=== PATIENT | male | born 1990 | race African-American/Black ===

== ENCOUNTER 2018-04-26 13:04 | Emergency (ER) | payer MEDICAID ==
[~2018-04-26] VITALS: Ht 182.9 cm; Wt 74.8 kg
[2018-04-26 13:58] VITALS: BP 152/98
--- NOTE | 2018-04-26 14:50 | NUR ---
PT AMBULATES TO ER BED 11
--- NOTE | 2018-04-26 15:20 | NUR ---
PATIENT PRESENTS TO ED WITH right facial swelling. Induration and tender to touch times 6 days. DENIES N/V/D; SKIN IS PINK/WARM/DRY; AAOX4 WITH EVEN AND STEADY GAIT; LUNGS CLEAR BL; HR EVEN AND REGULAR; PT DENIES ANY FEVER, CP, SOB, OR COUGH AT THIS TIME; PATIENT STATES PAIN OF 8/10 AT THIS TIME; VSS; PATIENT POSITIONED FOR COMFORT; HOB ELEVATED; BEDRAILS UP X2; BED DOWN. ER MD MADE AWARE OF PT STATUS.
[2018-04-26] MEDS ORDERED: LIDOCAINE 1% ***ER ONLY *** 50 ML ONE (16:10)
[2018-04-26] MEDS ORDERED: BACITRACIN OINT 500 UNITS/GM PKT TP ONE (16:39)
[2018-04-26] MEDS: CEPHALEXIN 500 MG CAP PO ONE (16:51)
[2018-04-26] MEDS: SULFAMETH/TRIMETH DS 800/160MG 1 TAB PO ONE (16:52)
[2018-04-26] MEDS: BACITRACIN OINT 500 UNITS/GM PKT TP ONE (16:53)
[2018-04-26 17:25] VITALS: BP 135/88
--- NOTE | 2018-04-26 17:25 | NUR ---
Patient discharged with v/s stable. Written and verbal after care instructions given and explained. Patient alert, oriented and verbalized understanding of instructions. Ambulatory with steady gait. All questions addressed prior to discharge. ID band removed. Patient advised to follow up with PMD. Rx of KELFEX/BACTRIM/ given. Patient educated on indication of medication including possible reaction and side effects. Opportunity to ask questions provided and answered.
[2018-04-26] MEDS: LIDOCAINE 1% 500 MG/50 ML VIAL INJ SCH (18:07)
== END 2018-04-26 17:25 | disposition home or self-care (01) ==
LOC: MED 13:04
DX: L02.01 Cutaneous abscess of face (principal); J45.909 Unspecified asthma, uncomplicated; F17.210 Nicotine dependence, cigarettes, uncomplicated
CPT/HCPCS: 10060; 99284; J2001

== ENCOUNTER 2019-03-16 09:49 | Emergency (ER) | payer MEDICAID ==
[~2019-03-16] VITALS: Ht 182.9 cm; Wt 72.1 kg
[2019-03-16 09:54] VITALS: BP 118/72
--- NOTE | 2019-03-16 09:59 | NUR ---
PT AMB TO BED 6
--- NOTE | 2019-03-16 10:14 | NUR ---
28 YO M BIB FRIEND C/O 9/10 RIGHT EAR PAIN,REDNESS, SWELLING X 6 DAYS. DENIES -N/V/D. DENIES FEVER. VITAL SIGNS STABLE. AWAITING FOR ER MD FOR EVALUATION. MED HX:DENIES
[2019-03-16] MEDS ORDERED: LIDOCAINE 1% 500 MG/50 ML VIAL INJ SCH (10:45)
[2019-03-16] MEDS ORDERED: LIDOCAINE MPF 1% 5mL VIAL ONE (11:21)
[2019-03-16 11:50] VITALS: BP 123/76
--- NOTE | 2019-03-16 11:52 | NUR ---
Patient discharged with v/s stable. Written and verbal after care instructions given and explained. Patient alert, oriented and verbalized understanding of instructions. Ambulatory with steady gait. All questions addressed prior to discharge. Patient advised to follow up with PMD. Rx of motrin, norco and keflex given. Patient educated on indication of medication including possible reaction and side effects. Opportunity to ask questions provided and answered.
== END 2019-03-16 11:52 | disposition home or self-care (01) ==
LOC: MED 09:49
DX: H60.01 Abscess of right external ear (principal); L72.0 Epidermal cyst; J45.909 Unspecified asthma, uncomplicated
CPT/HCPCS: 69000; 99284; J2001